=== PATIENT | female | born 1945 | race Caucasian/White ===

== ENCOUNTER 2018-01-23 19:25 | Inpatient (IN) | payer MEDICARE, MEDICAID ==
[~2018-01-23] VITALS: Ht 157.5 cm; Wt 134.0 kg
[~2018-01-23 19:25] MED LIST: MELATONIN
[2018-01-23 20:20] LABS: BASOPHILS % (AUTO) 0.5 % (0.0-2.0); EOSINOPHILS # (AUTO) 0.1 K/uL (0.0-0.7); EOSINOPHILS % (AUTO) 1.8 % (0.0-7.0); HEMATOCRIT 28.8 % (31.2-41.9); HEMOGLOBIN 9.3 g/dL (10.9-14.3); LYMPHOCYTES # (AUTO) 1.4 K/uL (20.0-40.0); LYMPHOCYTES % (AUTO) 20.2 % (20.5-51.5); MEAN CORPUSCULAR HEMOGLOBIN 24.6 uug (24.7-32.8); MEAN CORPUSCULAR HGB CONC 32 g/dL (32.3-35.6); MEAN CORPUSCULAR VOLUME 76.4 fL (75.5-95.3); MONOCYTES # (AUTO) 0.3 K/uL (2.0-10.0); MONOCYTES % (AUTO) 3.7 % (0.0-11.0); NEUTROPHILS # (AUTO) 5.2 K/uL (1.8-8.9); NEUTROPHILS % (AUTO) 73.8 % (38.5-71.5); PLATELET COUNT (AUTO) 203 K/uL (179-408); RED BLOOD CELL COUNT(AUTO) 3.77 MIL/uL (3.63-4.92); WHITE BLOOD COUNT (AUTO) 7.1 K/uL (3.8-11.8)
[2018-01-23 20:47] LABS: CARBON DIOXIDE 25 mmol/L (21-32); CHLORIDE 104 mmol/L (98-107); CREATININE 0.8 mg/dL (0.6-1.3); GLUCOSE 124 mg/dL (74-106); POTASSIUM 3.7 mmol/L (3.5-5.1); UREA NITROGEN, BLOOD 19 mg/dL (7-18)
[2018-01-23] MEDS ORDERED: HYDROMORPHONE 1 MG/1 ML DISP.SYRIN IV ONE ×2 (21:00→23:00)
[2018-01-23] MEDS ORDERED: ONDANSETRON 4 MG/2 ML VIAL IV ONE (21:00)
[2018-01-23 21:01] LABS: ALANINE AMINOTRANSFERASE 23 U/L (14-59); ALKALINE PHOSPHATASE 70 U/L (50-136); ASPARTATE AMINOTRANSFERASE 15 U/L (15-37); BILIRUBIN,DIRECT 0.2 mg/dL (0.0-0.2); BILIRUBIN,TOTAL 0.9 mg/dL (0.2-1.0); TOTAL PROTEIN, SERUM 8.1 g/dL (6.4-8.2)
[2018-01-23] MEDS ORDERED: ENOXAPARIN SODIUM 100 MG/ML DISP.SYRIN SQ ONE ×2 (21:45→22:12)
[2018-01-23] MEDS ORDERED: HYDROMORPHONE 2 MG/1 ML DISP.SYRIN ONE ×2 (22:13→23:08)
[2018-01-23] MEDS ORDERED: ONDANSETRON 4 MG/2 ML VIAL ONE (22:13)
[2018-01-23] MEDS ORDERED: IV NORMAL SALINE 250 ML IV ONE (23:38)
[2018-01-23] MEDS ORDERED: SWABABLE VALVE TRANSFER SET EA MC ONE (23:38)
[2018-01-23] MEDS ORDERED: IOHEXOL 300MG/ML 100 ML INFUS..BTL ONE (23:38)
--- NOTE | 2018-01-24 00:05 | NUR ---
PT IN ROUTE TO CT IN [facility] WITH TRANSPORTER
--- NOTE | 2018-01-24 00:20 | NUR ---
PT RETURNS FROM CT IN [facility] WITH TRANSPORTER
[2018-01-24] MEDS ORDERED: FUROSEMIDE 20 MG/2 ML VIAL IV ONE (01:15)
[2018-01-24] MEDS ORDERED: HYDROMORPHONE 2 MG/1 ML DISP.SYRIN ONE (01:24)
[2018-01-24] MEDS ORDERED: HYDROMORPHONE 1 MG/1 ML DISP.SYRIN IV ONE (01:30)
[2018-01-24 02:29] LABS: *BILIRUBIN,URIN NEGATIVE (NEGATIVE); *BLOOD, URINE Trace-intact (NEGATIVE); *CLARITY,URINE CLOUDY (CLEAR); *COLOR,URINE YELLOW (YELLOW); *KETONES,URINE NEGATIVE (NEGATIVE); *PROTEIN,URINE NEGATIVE (NEGATIVE); *UROBILINOGEN,URINE 0.2 E.U./dl (NORMAL); LEUKOCYTE ESTERASE ,URINE TRACE (NEGATIVE); NITRITE, URINE NEGATIVE (NEGATIVE); UGLUCOSE NEGATIVE (NEGATIVE)
[2018-01-24 02:41] LABS: BACTERIA,URINE MANY /HPF (NONE SEEN); RBC,URINE 0-3 /HPF (0-3); SQUAMOUS EPITHELIAL CELL,UR FEW /HPF (NONE SEEN)
[2018-01-24] MEDS ORDERED: CEPHALEXIN MONOHYDRATE 250 MG CAPSULE PO ONE (03:00)
[2018-01-24] MEDS ORDERED: IRON PO (03:05)
[2018-01-24] MEDS ORDERED: NORCO PO (03:05)
[2018-01-24] MEDS ORDERED: GABA-532 PO (03:05)
[2018-01-24] MEDS ORDERED: MORP15TA PO (03:05)
--- NOTE | 2018-01-24 03:05 | NUR ---
PATIENT UNABLE TO RECALL HOME MEDICATIONS AND DOSAGES AT THIS TIME. PATIENT STATES SHE WILL CALL FAMILY IN AM TO OBTAIN NAME AND DOSAGES
[2018-01-24] MEDS ORDERED: Z GUARD REMEDY PASTE 57 GM TUBE TOP PRN (03:15)
[2018-01-24] MEDS ORDERED: MAGNESIUM HYDROXIDE 30 ML LIQUID UDC PO PRN (03:15)
[2018-01-24] MEDS ORDERED: ACETAMINOPHEN 325 MG TABLET PO PRN (03:15)
[2018-01-24] MEDS ORDERED: ONDANSETRON 4 MG/2 ML VIAL IV PRN (03:15)
--- NOTE | 2018-01-24 03:20 | NUR ---
REPORT GIVEN TO TELEMETRY NURSEABIOLA
[2018-01-24 04:00] VITALS: BP 152/69
--- NOTE | 2018-01-24 04:00 | NUR ---
Pt. admitted to TELEMETRY, under care of MEREDITH CAMPOS Belongs List completed
--- NOTE | 2018-01-24 04:30 | NUR ---
RECEIVED PT FROM ER VIA TwiceSHAUN. PT ALERT, ORIENTEDX4. PT ADMITTED TO TELEMETRY. DX: COPD. BELONGING LIST DONE. ADMISSION PROCESS AND CARE PLAN INITIATED. CORRECTION ASSESSMENT DONE. PICTURES TAKEN FOR SKIN ISSUES. SAFETY AND COMFORT PROVIDED.IV INTACT AND PORTILLO CATH INTACT. CALL LIGHT WITHIN REACH. WILL CONTINUE TO MONITOR.
[2018-01-24] MEDS ORDERED: CEFTRIAXONE 1 G VIAL ONE (05:17)
[2018-01-24] MEDS: CEFTRIAXONE 1 G in IV DEXTROSE 5% 50 ML IV SCH (05:49)
[2018-01-24 06:47] LABS: BASOPHILS % (AUTO) 0.5 % (0.0-2.0); EOSINOPHILS # (AUTO) 0.1 K/uL (0.0-0.7); EOSINOPHILS % (AUTO) 2.1 % (0.0-7.0); HEMATOCRIT 27.8 % (31.2-41.9); LYMPHOCYTES # (AUTO) 1.4 K/uL (20.0-40.0); LYMPHOCYTES % (AUTO) 21.2 % (20.5-51.5); MEAN CORPUSCULAR HGB CONC 32 g/dL (32.3-35.6); MEAN CORPUSCULAR VOLUME 77.4 fL (75.5-95.3); MONOCYTES # (AUTO) 0.3 K/uL (2.0-10.0); MONOCYTES % (AUTO) 3.9 % (0.0-11.0); NEUTROPHILS # (AUTO) 4.7 K/uL (1.8-8.9); NEUTROPHILS % (AUTO) 72.3 % (38.5-71.5); PLATELET COUNT (AUTO) 184 K/uL (179-408); RED BLOOD CELL COUNT(AUTO) 3.59 MIL/uL (3.63-4.92); WHITE BLOOD COUNT (AUTO) 6.5 K/uL (3.8-11.8)
--- NOTE | 2018-01-24 06:49 | NUR ---
PT SHOWS NO ACUTE DISTRESS AT THIS TIME. PT IV AND PORTILLO INTACT. CALL LIGHT WITHIN REACH. SAFETY AND COMFORT PROVIDED. WILL ENDORSE TO INCOMING NURSE FOR CONTINUITY OF CARE.
[2018-01-24 06:59] LABS: CARBON DIOXIDE 28 mmol/L (21-32); CHLORIDE 103 mmol/L (98-107); CHOLESTEROL 147 mg/dL (<200); CREATININE 0.8 mg/dL (0.6-1.3); GLUCOSE 117 mg/dL (74-106); HDL CHOLESTEROL 43 mg/dL (40-60); MAGNESIUM 1.6 mg/dL (1.8-2.4); POTASSIUM 3.6 mmol/L (3.5-5.1); TRIGLYCERIDES 103 MG/DL (30-150); UREA NITROGEN, BLOOD 16 mg/dL (7-18)
--- NOTE | 2018-01-24 07:00 | NUR ---
RECEIVED PATIENT ON BED AWAKE AAOX4 NO ACUTE DISTRESS NOTED. NON AMBULATORY, MIN ASSIST WITH ADLS. COMPLAINTS OF SOB WHEN LYING DOWN. HOB KEPT ELEVATED. IV ACCESS ON THE LEFT AC #20 INTACT AND PATENT KVO. COMPLAINTS OF SEVERE LOWER EXTREMITY PAIN. WILL FOLLOW UP WITH MD. FC IN PLACE AND DRAINING CLEAR YELLOW URINE. COMFORT MEASURES PROVIDED. WILL CONTINUE TO MONITOR CLOSELY.
[2018-01-24] MEDS: HYDROCODONE/APAP 5-325MG TABLET PO PRN ×2 (07:10→16:17)
--- NOTE | 2018-01-24 09:00 | NUR ---
SEEN AND EXAMINED BY DR. Dudley ROMO. NEW ORDERS NOTED AND CARRIED OUT.
[2018-01-24] MEDS: FUROSEMIDE 40 MG/4 ML VIAL IV SCH ×2 (09:24→20:28)
[2018-01-24] MEDS ORDERED: POTASSIUM CHLORIDE 20 MEQ TAB.PRT.SR PO ONE (09:45)
[2018-01-24] MEDS ORDERED: ALBUTEROL SULFATE 2.5 MG/3 ML NEBU NEB PRN (09:45)
[2018-01-24] MEDS ORDERED: MORPHINE SULFATE PO SCH (10:45)
[2018-01-24] MEDS ORDERED: MORP30TA59 PO (11:16)
[2018-01-24] MEDS: GABAPENTIN 100 MG CAPSULE PO SCH (11:17)
[2018-01-24] MEDS: MAGNESIUM OXIDE 400 MG TABLET PO SCH ×3 (11:18→20:28)
[2018-01-24] MEDS: HYDROCODONE/APAP 10-325 MG TABLET PO PRN (11:27)
[2018-01-24] MEDS: MORPHINE SULFATE SR 30 MG TABLET.SA PO SCH ×2 (11:27→23:53)
[2018-01-24 11:37] VITALS: BP 125/53
--- NOTE | 2018-01-24 13:30 | NUR ---
SEEN AND EXAMINED BY [facility] WOUND CARE NURSE FOR WOUND CONSULT , REC TO CLEANSE SACRAL WOUND WITH NS, APPLY HYDROGEL AND COVER W/ MEPILEX, FLOAT HEELS AND REPOSITION PATIENT Q2 TO PREVENT BED SORES. WILL COTNINUE TO MONITOR.
--- NOTE | 2018-01-24 13:32 | NUR ---
WOUND CARE CONSULT FOUNTAIN WORKER ATTEMPTED TO SEE AND PERFORM ASSESSMENT OF PATIENT'S SKIN AND PATIENT REFUSED AT THIS TIME. PATIENT STATED THAT SHE HAS TOO MUCH PAIN WHEN SHE IS MOVED. I WAS ABLE TO SEE THE PHOTOS OF THE SACRAL ULCER AND THE ULCER APPEARS TO BE FULL THICKNESS AND IS POA. PATIENT STATES SHE HAS A "WOUND DOCTOR" WHO COMES TO HER HOME AND TREATS HER WOUND. SHE LIVES AT HOME AND HAS CAREGIVERS WHO ASSIST HER. PATIENT IS NOTED TO HAVE BILATERAL LOWER EXTREMITIES WITH SWELLING AND DRY SKIN AND STATES SHE IS UNABLE TO WALK. I OFFERED PATIENT A BARIATRIC BED WITH AIR MATTRESS FOR TREATMENT OF HER ULCER AND SHE REFUSED STATING SHE HAS AN AIR MATTRESS AT HOME AND IS IN THE PROCESS OF SENDING IT BACK. CURRENTLY SHE IS ON AN ISOFLEX GEL FOAM MATTRESS WHICH SHE STATES IS COMFORTABLE FOR HER. I OFFERED PT A SURGICAL CONSULT AND SHE DECLINED STATING SHE WAS VERY HAPPY WITH HER "HOME WOUND DOCTOR. I EXPLAINED TO PATIENT THE IMPORTANCE OF TURNING AND REPOSITIONING AND ALSO HEEL FLOATING TO PREVENT "BED SORES" AND SHE VERBALIZED UNDERSTANDING AND STATED I WILL ONLY TURN WHEN I'M CLEANED OR WHEN I TAKE MY MEDS. FOUNTAIN WORKER EXPLAINED RISKS AND BENEFITS OF TURNING AND HEEL FLOATING WITH GOOD UNDERSTANDING. RECOMMEND SACRAL ULCER TREATMENT FOLLOWS: CLEANSE WITH NS, PAT DRY, APPLY HYDROGEL TO THE WOUND, COVER WITH MEPILEX DAILY AND PRN SOILING. MAY USE MEPILEX FOR PROTECTION TO THE OTHER HEALING AREAS THAT ARE NOTED. ALL DISCUSSED WITH NURSING STAFF AT THE BEDSIDE. CURRENT ANALILIA AT 12. WILL SEE PRN.
--- NOTE | 2018-01-24 14:00 | NUR ---
OFFERED TO REPOSITION PATIENTS LEGS AND KEEP BOTH HEELS FLOATED. PATIENT REFUSED STATING "NOT NOW NOT NOW" EXPLAINED RISKS OF DEVELOPING BEDSORES PATIENT VERBALIZED UNDERSTANDING. WILL CONTINUE TO MONITOR
[2018-01-24 16:00] VITALS: BP 115/53
--- NOTE | 2018-01-24 17:00 | NUR ---
WOUND DRESSING DONE ON PATIENT SACRAL, CLEANSED WITH NS, PAT DRY AND APPLIED MEPILEX W/ HYDROGEL. TRIED TO FLOAT HEELS BUT PATIENT STATED THAT SHE FEELS UNCOMFORTABLE IN THAT POSITION. PATIENT AWARE OF RISK OF BEDSORES DISCUSSED EARLIER, ALSO W/ WOUND CARE NURSE. WILL CONTINUE TO MONITOR CLOSELY. Addendum: 01/24/18 at 1828 by DIPESH CARABALLO RN OFFERED FIRST STEP MATTRESS PATIENT ALSO REFUSED. WILL CONTINUE TO MONITOR
--- NOTE | 2018-01-24 18:28 | NUR ---
PATIENT REQUESTED IF SHE CAN HAVE IBUPROFEN TO TAKE IN BETWEEN PAIN MEDICATIONS, INFORMED DR. ROMO, WITH ORDERS FOR IBUPROFEN 600MG Q6PRN. ORDERS NOTED AND CARRIED OUT.
[2018-01-24 19:10] VITALS: BP 161/73
--- NOTE | 2018-01-24 19:10 | NUR ---
RECEIVED PT AWAKE ON BED, AAOX4, ON TELE MONITOR SINUS RHYTHM WITH PACs, HR OF 89. NO SIGNS OF RESPIRATORY DISTRESS NOTED. ON O2 2L VIA NC. IV SITE ON LFA, PATENT AND INTACT. SAFETY MEASURES INITIATED, CALL GREENE WITHIN REACH.
[2018-01-24] MEDS: IBUPROFEN 600 MG TABLET PO PRN (19:37)
[2018-01-24 20:12] VITALS: BP 146/62
[2018-01-25 00:23] VITALS: BP 139/59
[2018-01-25] MEDS: HYDROCODONE/APAP 10-325 MG TABLET PO PRN ×3 (03:16→15:29)
--- NOTE | 2018-01-25 04:30 | NUR ---
EDUCATED PT ON RISK AND PREVENTION OF PRESSURE SORES, PT VERBALIZED UNDERSTANDING BUT REFUSED TO BE REPOSITIONED AND HAVE HEEL FLOATERS ON.
[2018-01-25 04:46] VITALS: BP 135/51
[2018-01-25] MEDS: CEFTRIAXONE 1 G in IV DEXTROSE 5% 50 ML IV SCH (05:03)
[2018-01-25 06:16] LABS: BASOPHILS % (AUTO) 0.7 % (0.0-2.0); EOSINOPHILS # (AUTO) 0.2 K/uL (0.0-0.7); EOSINOPHILS % (AUTO) 3.1 % (0.0-7.0); HEMATOCRIT 26.9 % (31.2-41.9); HEMOGLOBIN 8.7 g/dL (10.9-14.3); LYMPHOCYTES # (AUTO) 1.7 K/uL (20.0-40.0); LYMPHOCYTES % (AUTO) 28.7 % (20.5-51.5); MEAN CORPUSCULAR HEMOGLOBIN 24.9 uug (24.7-32.8); MEAN CORPUSCULAR HGB CONC 32 g/dL (32.3-35.6); MEAN CORPUSCULAR VOLUME 77.1 fL (75.5-95.3); MONOCYTES # (AUTO) 0.2 K/uL (2.0-10.0); MONOCYTES % (AUTO) 4.1 % (0.0-11.0); NEUTROPHILS # (AUTO) 3.7 K/uL (1.8-8.9); NEUTROPHILS % (AUTO) 63.4 % (38.5-71.5); PLATELET COUNT (AUTO) 179 K/uL (179-408); RED BLOOD CELL COUNT(AUTO) 3.49 MIL/uL (3.63-4.92); WHITE BLOOD COUNT (AUTO) 5.8 K/uL (3.8-11.8)
--- NOTE | 2018-01-25 06:17 | NUR ---
PT ASLEEP ON BED, ON TELE MONITOR SINUS RHYTHM WITH HR OF 77, NO SIGNS OF RESPIRATORY DISTRESS NOTED. WOUND CARE PROVIDED. ON PORTILLO, DRAINING WELL VIA GRAVITY. ON O2 2L, VIA NC. IV SITE OF LFA, PATENT AND INTACT. ALL NEEDS ATTENDED AND MET. SAFETY MEASURES MAINTAINED AT ALL TIMES, CALL GREENE WITHIN REACH.
[2018-01-25 06:38] LABS: CARBON DIOXIDE 29 mmol/L (21-32); CHLORIDE 102 mmol/L (98-107); CREATININE 1.1 mg/dL (0.6-1.3); GLUCOSE 131 mg/dL (74-106); MAGNESIUM 1.8 mg/dL (1.8-2.4); UREA NITROGEN, BLOOD 20 mg/dL (7-18)
--- NOTE | 2018-01-25 07:00 | NUR ---
RECEIVED PATIENT ON BED AWAKE AAOX4 NO ACUTE DISTRESS NOTED. BED REST, NON AMBULATORY. IV ACCESS ON THE LEFT AC #20 INTACT AND PATENT KVO. NO SOB AT THIS TIME, STATES THAT HER BREATHING HAS GOTTEN BETTER. COMPLAINTS OF SEVERE LOWER EXTREMITY PAIN. WILL ADMINISTER PAIN MEDS PRN ORDERED. FC IN PLACE AND DRAINING CLEAR YELLOW URINE. COMFORT MEASURES PROVIDED. CALL LIGHT WITHIN REACH. WILL CONTINUE TO MONITOR CLOSELY
[2018-01-25 08:08] LABS: ABG BASE EXCESS 2.5 mmol/L; ABG HCO3 28.1 mmol/L; ABG PH 7.385 (7.350-7.450); ABG PO2 67.1 mmHg (75.0-100.0); ABG SITE RIGHT RADIAL; ABG TOTAL HEMOGLOBIN 9.8 G/dL (12.0-16.0); O2Hb 91.1 % (94.0-97.0); VENT MODE ROOM AIR
[2018-01-25] MEDS: FUROSEMIDE 40 MG/4 ML VIAL IV SCH (08:38)
[2018-01-25] MEDS: MORPHINE SULFATE SR 30 MG TABLET.SA PO SCH (08:39)
[2018-01-25] MEDS: GABAPENTIN 100 MG CAPSULE PO SCH (08:39)
[2018-01-25] MEDS ORDERED: FERROUS SULFATE 325 MG TABEC PO SCH (09:00)
[2018-01-25] MEDS ORDERED: FURO-152 PO (09:07)
[2018-01-25] MEDS ORDERED: GABA100C PO (09:07)
[2018-01-25] MEDS ORDERED: CARV3.12 PO (09:11)
--- NOTE | 2018-01-25 10:15 | NUR ---
REPOSITIONED PATIENT IN BED, ADVISED TO FLOAT HEELS, PATIENT REFUSED, EXPALINED RISK FOR BED SORES. WILL CONTINUE TO MONITOR CLOSELY.
[2018-01-25 11:44] VITALS: BP 134/50
[2018-01-25] MEDS: IBUPROFEN 600 MG TABLET PO PRN (12:23)
[2018-01-25 15:34] VITALS: BP 139/60
--- NOTE | 2018-01-25 15:55 | NUR ---
PATIENT DISCHARGED IN STABLE CONDITION, DISCHARGE PAPERS AND INSTRUCTIONS GIVEN AND EXPLAINED TO PATIENT, PT VERBALIZED UNDERSTANDING. REFUSED MEDICATION EDUCATION FROM PHARMACIST. PATIENT WILL GO HOME WITH PORTILLO CATHETER, DR. ROMO AWARE. BELONGINGS LIST COMPLETED AND SIGNED, HOME MEDS RETURNED TO PATIENT. IV ACCESS REMOVED, WELL TOLERATED. ID BAND DISPOSED PROPERLY. PICTURES OF SKIN WERE TAKEN EARLIER BY NIGHTSHIFT NURSE. PATIENT LEFT FACILITY VIA AMBULANCE.
[2018-01-26] MEDS ORDERED: FENTANYL 25 MCG/HR PATCH EACH TD SCH (09:00)
== END 2018-01-25 16:00 | disposition home health service (06) | DRG 291 ==
LOC: ER 19:25 → TELE 01-24 03:20 → MED 01-25 14:50
PROVIDERS: ADMIT Nurse Practitioner Acute Care; ATTEND Internal Medicine
DX: I50.33 Acute on chronic diastolic (congestive) heart failure (principal); J96.01 Acute respiratory failure with hypoxia; L89.153 Pressure ulcer of sacral region, stage 3; E66.2 Morbid (severe) obesity with alveolar hypoventilation; Z68.43 Body mass index [BMI] 50.0-59.9, adult; Z87.891 Personal history of nicotine dependence; G47.33 Obstructive sleep apnea (adult) (pediatric); G89.4 Chronic pain syndrome; I27.20 Pulmonary hypertension, unspecified; Z74.01 Bed confinement status; Z82.49 Family history of ischemic heart disease and other diseases of the circulatory system; Z86.61 Personal history of infections of the central nervous system; E83.42 Hypomagnesemia; E03.9 Hypothyroidism, unspecified; D64.9 Anemia, unspecified; G62.9 Polyneuropathy, unspecified; I89.0 Lymphedema, not elsewhere classified; T50.1X6A Underdosing of loop [high-ceiling] diuretics, initial encounter; Z91.128 Patient's intentional underdosing of medication regimen for other reason; Y92.009 Unspecified place in unspecified non-institutional (private) residence as the place of occurrence of the external cause
CPT/HCPCS: 36415; 36600; 70030-TC; 71045; 71275; 83605; 83735; 84100; 84443; 85025; 85730; 87040; 87077; 87086; 93005; 93307; A4663; J0696; J1170; J1650; J1940; J2405; J7040; J7050; J7060; Q9967